=== PATIENT | male | born 1995 | race Two or more races ===

== ENCOUNTER 2017-12-15 21:08 | Emergency (ER) | payer MEDICAID, OTHER ==
[~2017-12-15] VITALS: Ht 177.8 cm; Wt 65.8 kg
[2017-12-15 21:15] VITALS: BP 151/97
[2017-12-15] MEDS ORDERED: ALBUTEROL SULF 2.5 MG/0.5ML(0.5%) NEB SOLN NEB ONE (21:30)
[2017-12-15] MEDS ORDERED: IPRATROPIUM BROM 0.5 MG/2.5ML INH SOL NEB ONE (21:30)
== END 2017-12-16 00:04 | disposition left against medical advice (07) ==
LOC: ER 21:08
DX: J45.909 Unspecified asthma, uncomplicated (principal); R06.02 Shortness of breath; Z53.21 Procedure and treatment not carried out due to patient leaving prior to being seen by health care provider
CPT/HCPCS: 94640